=== PATIENT | male | born 1965 | race Caucasian/White ===

== ENCOUNTER 2025-04-15 07:10 | Day surgery (SDC) | payer BC ==
[~2025-04-15] VITALS: Ht 185.4 cm; Wt 116.7 kg
[~2025-04-15 07:10] MED LIST: ANAS1TAB2 PO; CLOM50TA28 PO; ECOT81TA5 PO; MIDAZOLAM INJ 2 MG/2 ML VIAL As Ordered ONE; OXYB10TA23 PO; PHENYLEPHRINE 10% OPHTH SOL 5ML OS PRN; XALA0.007 OU
[2025-04-15] MEDS: OFLOXACIN 0.3 % (OCUFLOX) OPTH SOL 5ML OS ONE (08:40)
[2025-04-15] MEDS: CYCLOPENTOLATE 1% OPHTH SOLN 2 ML BTL OS SCH (08:40)
[2025-04-15] MEDS: TROPICAMIDE 1% OPHTH SOLN 15ML OS SCH (08:41)
[2025-04-15] MEDS: LIDOCAINE 3.5% 1 ML OPHTH TOPICAL GEL OU ONE (08:41)
[2025-04-15] MEDS: PHENYLEPHRINE 2.5% OPHTH SOL 2ML OS SCH (08:41)
[2025-04-15] MEDS: LIDOCAINE 1% SDV 5 ML VIAL As Ordered ONE (09:31)
[2025-04-15] MEDS: CEFUROXIME 1 MG/0.1 ML INTRACAMERAL INJ As Ordered ONE (09:32)
[2025-04-15] MEDS: BSS IRRIG/VANCO(10MG)/TOBRA(5MG)/EPINEPH(1:1000-0.5CC)500ML BAG-ORONLY As Ordered ONE (09:32)
[2025-04-15 10:01] VITALS: BP 115/64; TEMP 97; O2SAT 98
== END 2025-04-15 10:02 | disposition home or self-care (01) ==
LOC: M SDC 07:10
PROVIDERS: ATTEND Ophthalmology
DX: H25.12 Age-related nuclear cataract, left eye (principal); E78.00 Pure hypercholesterolemia, unspecified; G47.30 Sleep apnea, unspecified; Z79.899 Other long term (current) drug therapy; Z88.0 Allergy status to penicillin; Z92.21 Personal history of antineoplastic chemotherapy
CPT/HCPCS: 66984; 92015; J0697; J2250; J3010; V2788

== ENCOUNTER → 2025-07-09 | Outpatient (CLI) | payer BC ==
[~2025-07-09] MED LIST changes: -MIDAZOLAM INJ 2 MG/2 ML VIAL As Ordered ONE; -PHENYLEPHRINE 10% OPHTH SOL 5ML OS PRN
== END ==
LOC: M SLEEP 20:00
PROVIDERS: ATTEND Internal Medicine Pulmonary Disease
DX: G47.33 Obstructive sleep apnea (adult) (pediatric) (principal)